=== PATIENT | female | born 1995 | race American Indian/Alaskan Native ===

== ENCOUNTER 2019-12-07 10:41 | Emergency (ER) | payer MEDICAID ==
[2019-12-07 11:51] LABS: Bacteria,Urine 1+ /HPF (Negative); Bilirubin,Urine NEG (Negative); Blood,Urine NEG (Negative); Color,Urine Yellow (Yellow); Mucus,Urine 2+ /HPF; Protein,Urine <15 mg/dL mg/dL (Negative); Urobilinogen,Urine < 2.0 mg/dL (<2.0)
--- NOTE | 2019-12-07 12:06 | Ultrasound Report ---
FIRSTTRIMESTER OBSTETRIC ULTRASOUND ULTRASOUND OB TRANSVAGINAL HISTORY: Pain, vaginal bleeding, history of placental abruption with last COMPARISON: None. TECHNIQUE: Routine transabdominal and transvaginal OB ultrasound performed. FINDINGS: Uterus: Mildly enlarged measuring 10.3 x 7.5 x 6.8 cm. Gestational Sac: Well-defined oval shape and intrauterine in location. Yolk Sac: No abnormality Fetus/Embryo: [place]-rump length of 2.05 cm, corresponding to an estimated gestational age of 8 weeks 5 days. Embryonic/ anatomy is too small for evaluation. Embryonic/ cardiac activity: 170bpm Placenta: Too small for evaluation. Amniotic fluid volume: Subjectively appropriate for gestational age. Ovaries: The right ovary is normal in size and appearance with normal blood flow, measuring 3.7 x 2. 9 x 3.0 cm. The left ovary is normal in size and appearance with normal blood flow, measuring 2.7 x 2.0 x 2.0 cm cm. Hypoechoic space-occupying mass in the right ovary with peripheral vascularity is m ost likely the corpus luteum. Additional findings: There is a rounded hypoechoic area along the anterior border of the chorion miki uring up to 1.7 cm in greatest dimension. This may represent a remote subchorionic hemorrhage. Follow -up is recommended. IMPRESSION Early live intrauterine . Probable subchorionic hemorrhage. Signer Name: Pablo Rossi Jr, MD Signed: 12/07/2019 12:02 PM Workstation Name: [id number]
[2019-12-07 12:26] LABS: Basophils % (Auto) 0.5 % (0.0-1.8); Eosinophils # (Auto) 0.1 K/mm3 (0.0-0.4); Eosinophils % (Auto) 1.1 % (0.0-4.3); Hematocrit 37.5 % (30.3-42.9); Lymphocytes # (Auto) 1.4 K/mm3 (1.2-5.4); Lymphocytes % (Auto) 24.2 % (13.4-35.0); Mean Corpuscular HGB Conc 35 % (30-34); Mean Corpuscular Volume 88 fl (79-97); Monocytes # (Auto) 0.4 K/mm3 (0.0-0.8); Monocytes % (Auto) 7.4 % (0.0-7.3); Platelet Count 250 K/mm3 (140-440); Red Blood Count 4.27 M/mm3 (3.65-5.03); Red Cell Distribution Width 15.6 % (13.2-15.2)
[2019-12-07 12:49] LABS: Alanine Aminotransferase 9 units/L (7-56); Albumin 4.3 g/dL (3.9-5); BUN/Creatinine Ratio 20; Blood Urea Nitrogen 10 mg/dL (7-17); Calcium 9.5 mg/dL (8.4-10.2); Hemolysis Index 11
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
[2019-12-07 15:17] VITALS: BP 121/70
== END 2019-12-07 15:17 | disposition home or self-care (01) ==
LOC: ED 10:41
DX: O34.81 Maternal care for other abnormalities of pelvic organs, first trimester (principal); N83.201 Unspecified ovarian cyst, right side; O26.891 Other specified pregnancy related conditions, first trimester; R10.31 Right lower quadrant pain; Z79.899 Other long term (current) drug therapy; Z98.890 Other specified postprocedural states; Z3A.08 8 weeks gestation of pregnancy
CPT/HCPCS: 36415; 76801; 76817; 80053; 81001; 84702; 85025; 86900; 86901